=== PATIENT | female | born 1980 | race Caucasian/White ===

== ENCOUNTER 2016-09-15 13:40 | Emergency (ER) | payer MEDICAID ==
[2016-09-15 14:02] VITALS: BP 133/77; BMI 37.1
--- NOTE | 2016-09-15 14:38 | DR.GENAD ---
HPI - PCP Primary Care Physician: dr. lechuga - Complaint/Symptoms Chief Complaint:: patient has a cyst on her left lower jaw. she has seen her family doctor and has been on levauquin. she stated she has a hx of cyst. - Nurses notes reviewed Nurses Notes Review: Yes - Source History Provided: Patient - Timing Onset of Chief Complaint: 09/12/16 PMH - PMH Past Medical History: Yes Past Medical History: Anxiety, Asthma Past Surgical History: Yes Surgical History: Ortho Surgery - Family History History of Family Medical Conditions: No - Social History Does patient currently use any type of tobacco product: No Have you used tobacco products in the last 12 months: No Type of Tobacco Use: None Does any household member use tobacco: No Alcohol Use: None Do you use any recreational Drugs:: No Lives With: Family Lives Where: Home - infectious screening In the last 2 months have you had wt loss of >10#?: NO Have you had fever, night sweats or hemotysis?: No Have you traveled outside the country in the last 6 months?: No Isolation: Standard PE - Vital Signs Vitals: Temperature 98.9 F Pulse Rate 90 Respiratory Rate 18 Blood Pressure 133/77 O2 Sat by Pulse Oximetry 100 ROR - Labs Reviewed Result Diagrams: 09/15/16 14:48 09/15/16 14:48 Laboratory: WBC 14.0 X10^3/uL (3.6-10.0) H 09/15/16 14:48 RBC 4.55 X10^6/uL (3.5-5.4) 09/15/16 14:48 Hgb 12.4 g/dL (12.0-16.0) 09/15/16 14:48 Hct 37.8 % (36.0-47.0) 09/15/16 14:48 MCV 83.1 fL (80.0-100.0) 09/15/16 14:48 MCH 27.4 pg (27.0-34.0) 09/15/16 14:48 MCHC 32.9 g/dL (33.0-35.0) L 09/15/16 14:48 RDW 14.6 % (11.6-16.5) 09/15/16 14:48 Plt Count 208 X10^3/uL (150.0-450.0) 09/15/16 14:48 MPV 10.0 fL (7.4-11.0) 09/15/16 14:48 Neut % 65.9 % (42.0-75.0) 09/15/16 14:48 Lymph % 24.0 % (21.0-51.0) 09/15/16 14:48 Luna % 6.7 % (0.0-13.0) 09/15/16 14:48 Eos % 2.6 % (0.9-2.9) 09/15/16 14:48 Baso % 0.8 % (0.2-1.0) 09/15/16 14:48 Neut # 9.2 x10^3/uL (2.2-4.8) H 09/15/16 14:48 Lymph # 3.4 X10^3/uL (1.3-2.9) H 09/15/16 14:48 Luna # 0.9 x10^3/uL (0.3-0.8) H 09/15/16 14:48 Eos # 0.4 x10^3/uL (0.0-0.2) H 09/15/16 14:48 Baso # 0.1 X10^3/uL (0.0-0.1) 09/15/16 14:48 Absolute Nucleated RBC 0.0 /100WBC 09/15/16 14:48 Sodium 142 mmol/L (136-145) 09/15/16 14:48 Corrected Sodium TNP 09/15/16 14:48 Potassium 4.0 mmol/L (3.5-5.1) 09/15/16 14:48 Chloride 105 mmol/L (98-107) 09/15/16 14:48 Carbon Dioxide 29.3 mmol/L (21-32) 09/15/16 14:48 BUN 14 mg/dL (7-18) 09/15/16 14:48 Creatinine 0.76 mg/dL (0.55-1.02) 09/15/16 14:48 Est GFR (MDRD) Af Amer > 60 (>60) 09/15/16 14:48 Est GFR (MDRD) Non-Af > 60 (>60) 09/15/16 14:48 Glucose 68 mg/dL (65-99) 09/15/16 14:48 Calcium 9.3 mg/dL (8.5-10.1) 09/15/16 14:48 Corrected Calcium TNP 09/15/16 14:48 Total Bilirubin 0.20 mg/dL (0.2-1.0) 09/15/16 14:48 AST 11 Units/L (15-37) L 09/15/16 14:48 ALT 20 Units/L (12-78) 09/15/16 14:48 Alkaline Phosphatase 52 Units/L (46-116) 09/15/16 14:48 Total Protein 7.3 g/dL (6.4-8.2) 09/15/16 14:48 Albumin 3.6 g/dL (3.4-5.0) 09/15/16 14:48 Globulin 3.7 g/dL (2.5-4.5) 09/15/16 14:48 Albumin/Globulin Ratio 1.0 Ratio (1.1-2.1) L 09/15/16 14:48 - Discharge Plan Condition: Stable Prescriptions: RX: Doxycycline (Monohydrate) [Doxycycline Monohydrate] 100 mg PO BID #20 cap Ibuprofen [MOTRIN TAB 600 MG *] 600 mg PO TID PRN #60 tab PRN Reason: Pain/Inflammation - Follow ups/Referrals Follow ups/Referrals: NOMAN LECHUGA [Primary Care Provider] - 1 day - Instructions Instructions: Cellulitis Additional Instructions: RETURN TO ED IF WORSE.
[2016-09-15 14:56] LABS: BASOPHILS # (AUTO) 0.1 X10^3/uL (0.0-0.1); BASOPHILS % (AUTO) 0.8 % (0.2-1.0); EOSINOPHILS # (AUTO) 0.4 x10^3/uL (0.0-0.2); EOSINOPHILS % (AUTO) 2.6 % (0.9-2.9); HEMATOCRIT 37.8 % (36.0-47.0); HEMOGLOBIN 12.4 g/dL (12.0-16.0); LYMPHOCYTES # (AUTO) 3.4 X10^3/uL (1.3-2.9); MEAN CORPUSCULAR HEMOGLOBIN 27.4 pg (27.0-34.0); MEAN CORPUSCULAR HGB CONC 32.9 g/dL (33.0-35.0); MEAN CORPUSCULAR VOLUME 83.1 fL (80.0-100.0); MONOCYTES # (AUTO) 0.9 x10^3/uL (0.3-0.8); MONOCYTES % (AUTO) 6.7 % (0.0-13.0); NEUTROPHILS # (AUTO) 9.2 x10^3/uL (2.2-4.8); NEUTROPHILS % (AUTO) 65.9 % (42.0-75.0); PLATELET COUNT 208 X10^3/uL (150.0-450.0); RED BLOOD COUNT 4.55 X10^6/uL (3.5-5.4); RED CELL DISTRIBUTION WIDTH 14.6 % (11.6-16.5)
[2016-09-15 15:37] LABS: ALANINE AMINOTRANSFERASE 20 Units/L (12-78); ALBUMIN 3.6 g/dL (3.4-5.0); ALKALINE PHOSPHATASE 52 Units/L (46-116); ASPARTATE AMINO TRANSFERASE 11 Units/L (15-37); BLOOD UREA NITROGEN 14 mg/dL (7-18); CALCIUM 9.3 mg/dL (8.5-10.1); CARBON DIOXIDE 29.3 mmol/L (21-32); CHLORIDE 105 mmol/L (98-107); CREATININE 0.76 mg/dL (0.55-1.02); GLUCOSE 68 mg/dL (65-99); SODIUM 142 mmol/L (136-145); TOTAL PROTEIN 7.3 g/dL (6.4-8.2); eGFR BLACK RACES > 60 (>60); eGFR NON BLACK RACES > 60 (>60)
[2016-09-15] MEDS ORDERED: ZOFRAN INJ 4 MG VIAL IM ONE (15:45)
[2016-09-15] MEDS ORDERED: DEMEROL INJ IM ONE (15:45)
[2016-09-15] MEDS ORDERED: ZOFRAN INJ 4 MG VIAL ONE (15:49)
[2016-09-15] MEDS ORDERED: DEMEROL INJ ONE (15:50)
== END 2016-09-15 16:46 | disposition home or self-care (01) ==
LOC: ER 13:50
DX: L03.211 Cellulitis of face (principal)
CPT/HCPCS: 36415; 80053; 85025; 96372; 99282; J2175; J2405